=== PATIENT | female | born 1945 | race Caucasian/White ===

== ENCOUNTER 2020-07-27 18:17 | Emergency (ER) | payer MEDICARE ==
[~2020-07-27] VITALS: Ht 160 cm; Wt 46.0 kg
--- NOTE | 2020-07-27 18:47 | NUR ---
bib by samuel from [facility] (dementia). Staff reports patient paranoid/hallucinating today. Also complaining of discolored urine/perineal pressure. hx of hypothyroid/cognitive impairment vss/fsbs 100
--- NOTE | 2020-07-27 18:49 | NUR ---
Report to Santos GIFFORD
--- NOTE | 2020-07-27 18:51 | NUR ---
Assumed care of patient, UA sent to lab. Recieved report from Jareth GIFFORD
--- NOTE | 2020-07-27 18:52 | NUR ---
TAMARA CRAIN, PT A - [phone]
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
[2020-07-27] MEDS ORDERED: QUET25TA5 PO (19:05)
[2020-07-27] MEDS ORDERED: DONE10TA14 PO (19:05)
[2020-07-27] MEDS ORDERED: LEVO25TA4 PO (19:05)
[2020-07-27 19:10] LABS: BASOPHILS # (AUTO) 0.03 x10^3/uL (0-0.1); BASOPHILS % (AUTO) 0 % (0-1); EOSINOPHILS # (AUTO) 0.08 x10^3/uL (0-0.4); EOSINOPHILS % (AUTO) 1 % (1-7); LYMPHOCYTES # (AUTO) 1.71 x10^3/uL (1-3.4); LYMPHOCYTES % (AUTO) 19 % (22-44); MD NO; MEAN CORPUSCULAR HEMOGLOBIN 30.9 pg (27.0-34.8); MEAN CORPUSCULAR HGB CONC 33.6 g/dL (32.4-35.8); MEAN PLATELET VOLUME 7.7 fL (7.4-10.4); MONOCYTES # (AUTO) 0.66 x10^3/uL (0.2-0.8); MONOCYTES % (AUTO) 7 % (2-9); NEUTROPHILS # (AUTO) 6.47 x10^3/uL (1.8-6.8); NEUTROPHILS % (AUTO) 72 % (42-75); PLATELET COUNT 345 x10^3/uL (130-400); RED BLOOD COUNT 4.65 x10^6/uL (3.82-5.3); RED CELL DISTRIBUTION WIDTH 12.9 % (9.6-15.2)
[2020-07-27 19:13] LABS: ALANINE AMINOTRANSFERASE 47 U/L (12-78); ALBUMIN 3.9 g/dL (3.4-5.0); ANION GAP 7 mmol/L (5-15); CALCIUM 8.7 mg/dL (8.5-10.1); CHLORIDE 111 mmol/L (98-107); CREATININE 0.86 mg/dL (0.55-1.02)
[2020-07-27 19:23] LABS: ALKALINE PHOSPHATASE 70 U/L (45-117); BILIRUBIN,TOTAL 1.6 mg/dL (0.2-1.0); TOTAL PROTEIN 7.2 g/dL (6.4-8.2)
--- NOTE | 2020-07-27 19:38 | NUR ---
Pt reoriented to room and situation, pt cooperative and calm. Pt resting in room.
[2020-07-27 19:39] LABS: MICROSCOPIC AUTO
[2020-07-27 19:40] LABS: FREE T4 (FREE THYROXINE) 1.55 ng/dL (0.76-1.46)
--- NOTE | 2020-07-27 22:50 | NUR ---
Transport set up for 2330 [facility].
[2020-07-27 23:08] LABS: AMPHETAMINE SCREEN, URINE Negative (Negative); BARBITURATE SCREEN, URINE Negative (Negative); BENZODIAZEPINE SCREEN, URINE Negative (Negative); CANNABINOID SCREEN, URINE Negative (Negative); COCAINE SCREEN, URINE Negative (Negative); METHADONE SCREEN, URINE Negative (Negative); OPIATE SCREEN, URINE Negative (Negative)
--- NOTE | 2020-07-27 23:08 | NUR ---
Patient/Caregiver given discharge instructions and they have confirmed that they understand the instructions. Patient ambulatory with steady gait. Sabrina informed and Miladis at the [facility] aware of patient arriving via [facility].
--- NOTE | 2020-07-27 23:55 | NUR ---
Report to Sonia Perea, [facility] to [facility]er at 0030, family and [facility] staff have been made aware that patient will be returning. Packets for memory care and [facility] at nurses station.
--- NOTE | 2020-07-27 23:59 | NUR ---
REPORT RECIEVED FROM JOYCE GIFFORD, THIS RN TO ASSUME CARE OF PT. PT IS DRESSED AND READY TO GO. [facility] TO TAKE BACK AT 0030
[2020-07-28 00:49] VITALS: BP 154/79
--- NOTE | 2020-07-28 00:49 | NUR ---
VS UPDATED; PT. IS AMBULATING AROUND ROOM AND MAKING THE BED WITH SHEETS AND BLANKETS ON GURNEY. PT. AWARE OF PLAN FOR D/C; AWAITING [facility] TO TRANSPORT BACK TO SNF. PT. DENIES NEEDS. CALM AND COOPERATIVE.
== END 2020-07-28 00:57 | disposition home or self-care (01) ==
LOC: ED 18:47
DX: R31.29 Other microscopic hematuria (principal); R30.0 Dysuria; R10.2 Pelvic and perineal pain; E03.9 Hypothyroidism, unspecified
CPT/HCPCS: 36415; 80053; 80307; 81001; 84439; 84443; 85025; 87086; 99283